=== PATIENT | male | born 1980 | race Caucasian/White ===

== ENCOUNTER 2017-12-01 13:38 | Emergency (ER) | payer OTHER ==
[2017-12-01] MEDS ORDERED: NA CHLORIDE 0.9% 1,000 ML ONE (13:54)
[2017-12-01 14:24] LABS: Absolute Lymphocytes (CBC) 2.6 K/uL (0.7-4.9); Absolute Monocytes 0.9 K/uL (0.1-1.3); Absolute Neutrophil 12.5 K/uL (1.8-8.0); Basophils % 0.7 % (0-1.3); Eosinophils % 0.9 % (0-4.4); Hematocrit 41.6 % (39.6-49.0); Lymphocytes % 16.1 % (15.3-44.8); MCH 30.1 pg (27.0-35.0); MCV 87.3 fL (80-100); MPV 6.7 fL (7.6-11.3); Monocytes % 5.6 % (3.3-12.3); RBC Red Blood Cell Count 4.76 M/uL (4.33-5.43)
[2017-12-01 14:53] LABS: Potassium 3.8 mEq/L (3.6-5.0)
--- NOTE | 2017-12-01 15:10 | EKG ---
Test Date: 2017-12-01 Test Time: 14:13:59 Administrative Staff Supervisor: ALENA MEASUREMENT RESULTS: Intervals: Rate: 84 AL: 140 QRSD: 92 QT: 342 QTc: 404 [place]: P: 59 AL: 140 QRS: 76 T: 51 INTERPRETIVE STATEMENTS: Normal sinus rhythm Normal ECG No previous ECG available for comparison Electronically Signed On 12-01-17 15:09:49 CDT by Matt Robert
--- NOTE | 2017-12-01 15:21 | RAD REPORT ---
EXAM DESCRIPTION: CT - Head Brain Wo Cont - 12/01/2017 3:14 pm CLINICAL HISTORY: Syncope COMPARISON: None. TECHNIQUE: Computed axial tomography of the head was obtained. IV contrast was not requested. All CT scans are performed using dose optimization technique as appropriate and may include automated exposure control or mA/KV adjustment according to patient size. FINDINGS: An intracranial bleed is not seen . The ventricles are normal in caliber. No extra-axial fluid collection is noted. Fluid within the sinuses/ mastoids is not seen. IMPRESSION: No acute intracranial abnormality is seen. If patient's symptoms persist MRI of the bra in would be recommended.
--- NOTE | 2017-12-01 16:57 | ER ---
Nurse's Notes [facility] Name: Maurisio Caal III Age: 37 yrs Sex: Male : 1980 Arrival Date: 12/01/2017 Time: 13:42 Bed 19 Private MD: Diagnosis: Syncope and collapse Presentation: 12/01 13:45 Presenting complaint: EMS states: EMS states patient donated blood this morning and ae1 then had a syncopal episode striking the back of his head on the way down. Transition of care: patient was not received from another setting of care. Onset of symptoms was December 01, 2017. Initial Sepsis Screen: Does the patient meet any 2 criteria? No. Patient's initial sepsis screen is negative. Does the patient have a suspected source of infection? No. Patient's initial sepsis screen is negative. Care prior to arrival: v/s 96/69, 104/78, normal SR on EKG strip for EMS. 13:45 Method Of Arrival: EMS: [facility] ae1 13:45 Acuity: SEGUN 3 ae1 Triage Assessment: 15:05 General: Behavior is calm, cooperative. ae1 Historical: - Allergies: 13:49 PENICILLINS; ae1 - Home Meds: 13:49 None [Active]; ae1 - PMHx: 13:49 None; ae1 - PSHx: 13:49 lymph node removal from left gnosticist.; ae1 - Immunization history:: Adult Immunizations up to date. - Social history:: Smoking status: Patient/guardian denies using tobacco. - Family history:: not pertinent. - Hospitalizations: : No recent hospitalization is reported. Screenin:43 Abuse screen: Denies threats or abuse. Nutritional screening: No deficits noted. ae1 Tuberculosis screening: No symptoms or risk factors identified. Fall Risk Fall in past 12 months (25 points). No secondary diagnosis (0 pts). IV access (20 points). Ambulatory Aid- None/Bed Rest/Nurse Assist (0 pts). Gait- Normal/Bed Rest/Wheelchair (0 pts) Mental Status- Oriented to own ability (0 pts). Assessment: 14:13 Reassessment: Patient stated he felt strange and "dizzy", appeared very drowsy. BP ae1 reads 83/45, patient became pale. Patient placed flat, bolus placed on pump. General: Appears uncomfortable. 14:43 Pain: Complains of pain in right parietal area. Neuro: Level of Consciousness is awake, ae1 alert, obeys commands, Oriented to person, place, time, situation. Neuro: Reports dizziness, a syncopal episode. Cardiovascular: Rhythm is sinus rhythm. Respiratory: Airway is patent Respiratory effort is even, unlabored, Respiratory pattern is regular, symmetrical, Breath sounds are clear bilaterally. GI: No signs and/or symptoms were reported involving the gastrointestinal system. Patient currently denies diarrhea, nausea, vomiting. : No signs and/or symptoms were reported regarding the genitourinary system. EENT: No signs and/or symptoms were reported regarding the EENT system. Derm: Skin is pale. Musculoskeletal: No signs and/or symptoms reported regarding the musculoskeletal system. 14:45 Reassessment: Patient remains supine, IV fluids infusing. patient is alert and responds ae1 to verbal stimuli. 16:26 Reassessment: Patient and/or family updated on plan of care and expected duration. Pain ae1 level reassessed. Patient states feeling better. Patient states symptoms have improved. Vital Signs: 13:43 BP 98 / 75; Pulse 94; Resp 18; Temp 100(O); Pulse Ox 96% on R/A; Weight 77.11 kg; ae1 14:09 BP 82 / 45; Pulse 85; Resp 17; Pulse Ox 100% on R/A; ae1 14:23 BP 104 / 71; Pulse 81; Resp 24; Pulse Ox 100% on R/A; ae1 15:04 BP 116 / 77; Pulse 103; Resp 21; Pulse Ox 98% on R/A; ae1 16:25 BP 101 / 66; Pulse 110; Resp 18; Pulse Ox 98% on R/A; ae1 ED Course: 13:42 Patient arrived in ED. ae1 13:43 Goran Bonilla MD is Attending Physician. rn 13:48 Triage completed. ae1 13:49 Arm band placed on right wrist. ae1 13:49 Bed in low position. Call light in reach. Side rails up X2. Pulse ox on. NIBP on. ae1 14:22 Quique Jacques, NUVIA is Primary Nurse. ae1 15:13 CT completed. Patient tolerated procedure well. Patient moved to CT via stretcher. nj Patient moved back from CT. 15:15 CT Head Brain wo Cont In Process Unspecified. EDMS 17:20 No provider procedures requiring assistance completed. IV discontinued, intact, ae1 bleeding controlled, No redness/swelling at site. Pressure dressing applied. Administered Medications: 14:06 Drug: NS 0.9% 1000 ml Route: IV; Rate: 1000 ml; Site: right antecubital; ae1 17:22 Follow up: IV Status: Completed infusion ae1 Point of Care Testing: Blood Glucose: 13:50 Blood Glucose: 102 mg/dL; ae1 Ranges: Outcome: 16:57 Discharge ordered by . rn 17:21 Discharged to home ambulatory, with significant other. ae1 17:21 Condition: stable 17:21 Discharge instructions given to patient, significant other, Instructed on discharge instructions, follow up and referral plans. Demonstrated understanding of instructions, Patient ambulated with a steady gait exiting the ED. 17:22 Patient left the ED. ae1 Signatures: Dispatcher [employer] EDMS Goran Bonilla MD MD rn Elliott, Andrea, RN RN ae1 Andres Jones
--- NOTE | 2017-12-01 16:58 | EDPHYS ---
Physician Documentation [facility] Name: Maurisio Caal III Age: 37 yrs Sex: Male : 1980 Arrival Date: 12/01/2017 Time: 13:42 Bed 19 Private MD: ED Physician Goran Bonilla HPI: 12/01 14:25 This 37 yrs old Male presents to ER via EMS with complaints of Syncope. rn 14:25 The patient has experienced syncope. Onset: The symptoms/episode began/occurred just rn prior to arrival. Duration: This was a single episode. Associated injury: Head/face: contusion. Current symptoms: Currently, the patient is not experiencing any symptoms. The patient has not experienced similar symptoms in the past. Reports gave blood earlier today, felt ok, then was at [employer] because felt lightheaded, felt nauseous, passed out outside, hit head on sidewalk, woke up, feels better, hungry, denies chest pain/sob/abd pain/diarrhea. 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 . Historical: - Allergies: 13:49 PENICILLINS; ae1 - Home Meds: 13:49 None [Active]; ae1 - PMHx: 13:49 None; ae1 - PSHx: 13:49 lymph node removal from left denominational.; ae1 - Immunization history:: Adult Immunizations up to date. - Social history:: Smoking status: Patient/guardian denies using tobacco. - Family history:: not pertinent. - Hospitalizations: : No recent hospitalization is reported. ROS: 14:25 Constitutional: Negative for fever, chills, and weight loss, Eyes: Negative for injury, rn pain, redness, and discharge, Neck: Negative for injury, pain, and swelling, Cardiovascular: Negative for chest pain, palpitations, and edema, Respiratory: Negative for shortness of breath, cough, wheezing, and pleuritic chest pain, Abdomen/GI: Negative for abdominal pain, nausea, vomiting, diarrhea, and constipation, Back: Negative for injury and pain, MS/Extremity: Negative for injury and deformity, Skin: Negative for injury, rash, and discoloration, Neuro: Negative for headache, numbness, tingling, and seizure. Exam: 14:25 Constitutional: This is a well developed, well nourished patient who is awake, alert, rn and in no acute distress. Head/Face: Normocephalic, atraumatic. Eyes: Pupils equal round and reactive to light, extra-ocular motions intact. Lids and lashes normal. Conjunctiva and sclera are non-icteric and not injected. Cornea within normal limits. Periorbital areas with no swelling, redness, or edema. Neck: Trachea midline, no thyromegaly or masses palpated, and no cervical lymphadenopathy. Supple, full range of motion without nuchal rigidity, or vertebral point tenderness. No Meningismus. Cardiovascular: Regular rate and rhythm with a normal S1 and S2. No gallops, murmurs, or rubs. Normal PMI, no JVD. No pulse deficits. Respiratory: Lungs have equal breath sounds bilaterally, clear to auscultation and percussion. No rales, rhonchi or wheezes noted. No increased work of breathing, no retractions or nasal flaring. Abdomen/GI: Soft, non-tender, with normal bowel sounds. No distension or tympany. No guarding or rebound. No evidence of tenderness throughout. Skin: Warm, dry with normal turgor. Normal color with no rashes, no lesions, and no evidence of cellulitis. MS/ Extremity: Pulses equal, no cyanosis. Neurovascular intact. Full, normal range of motion. Equal circumference. Neuro: Awake and alert, GCS 15, oriented to person, place, time, and situation. Cranial nerves II-XII grossly intact. Motor strength 5/5 in all extremities. Sensory grossly intact. Cerebellar exam normal. Vital Signs: 13:43 BP 98 / 75; Pulse 94; Resp 18; Temp 100(O); Pulse Ox 96% on R/A; Weight 77.11 kg; ae1 14:09 BP 82 / 45; Pulse 85; Resp 17; Pulse Ox 100% on R/A; ae1 14:23 BP 104 / 71; Pulse 81; Resp 24; Pulse Ox 100% on R/A; ae1 15:04 BP 116 / 77; Pulse 103; Resp 21; Pulse Ox 98% on R/A; ae1 16:25 BP 101 / 66; Pulse 110; Resp 18; Pulse Ox 98% on R/A; ae1 MDM: 13:43 Patient medically screened. rn 16:56 Differential Diagnosis: cardiac arrhythmia, emotional response, idiopathic syncope, rn vasovagal episode. Data reviewed: vital signs, nurses notes, lab test result(s), EKG, radiologic studies, CT scan, and as a result, I will discharge patient. Counseling: I had a detailed discussion with the patient and/or guardian regarding: the historical points, exam findings, and any diagnostic results supporting the discharge/admit diagnosis, lab results, radiology results, the need for outpatient follow up, to return to the emergency department if symptoms worsen or persist or if there are any questions or concerns that arise at home. Response to treatment: the patient's symptoms have markedly improved after treatment, the patient's condition has returned to base line, the patient is now symptom free, patient is well hydrated. and as a result, I will discharge patient. Special discussion: I discussed with the patient/guardian in detail that at this point there is no indication for admission to the hospital. It is understood, however, that if the symptoms persist or worsen the patient needs to return immediately for re-evaluation. 12/01 13:51 Order name: CBC with Diff; Complete Time: 15:15 12/01 13:51 Order name: Basic Metabolic Panel; Complete Time: 15:15 12/01 13:51 Order name: Troponin (emerg Dept Use Only); Complete Time: 15:15 12/01 15:03 Order name: Glucose, Ancillary Testing; Complete Time: 15:15 EDMS 12/01 15:15 Order name: Flu; Complete Time: 16:08 12/01 15:15 Order name: Strep; Complete Time: 16:08 12/01 13:51 Order name: IV Start; Complete Time: 14:07 rn 12/01 13:51 Order name: EKG; Complete Time: 13:52 rn 12/01 13:51 Order name: EKG - Nurse/Tech; Complete Time: 14:23 rn 12/01 13:51 Order name: CT Head Brain wo Cont; Complete Time: 15:26 rn 12/01 15:15 Order name: [place] Screen Profile; Complete Time: 16:17 rn 12/01 15:57 Order name: Throat Culture EDMS Administered Medications: 14:06 Drug: NS 0.9% 1000 ml Route: IV; Rate: 1000 ml; Site: right antecubital; ae1 17:22 Follow up: IV Status: Completed infusion ae1 Point of Care Testing: Blood Glucose: 13:50 Blood Glucose: 102 mg/dL; ae1 Ranges: Critical Glucose Levels:Adult <50 mg/dl or >400 mg/dl <40 mg/dl or >180 mg/dl Disposition: 12/01/17 16:57 Discharged to Home. Impression: Syncope and collapse. - Condition is Stable. - Discharge Instructions: Syncope. - Medication Reconciliation Form, Thank You Letter, Antibiotic Education, Prescription Opioid Use form. - Follow up: Private Physician; When: As needed; Reason: Recheck today's complaints, Re-evaluation by your physician. - Problem is new. - Symptoms have improved. Signatures: Dispatcher [employer] EDGoran Calzada MD MD rn Elliott, Andrea, RN RN ae1
== END 2017-12-01 17:22 | disposition home or self-care (01) ==
LOC: ER 13:38
DX: R55 Syncope and collapse (principal); W18.30XA Fall on same level, unspecified, initial encounter; Y93.01 Activity, walking, marching and hiking; Y92.511 Restaurant or cafe as the place of occurrence of the external cause; Z88.0 Allergy status to penicillin
CPT/HCPCS: 36415; 70450; 80048; 82962; 84484; 85025; 86308; 87070; 87081; 87804; 93005; 96360; 96361; 99285; J7030